=== PATIENT | male | born 1970 | race Two or more races ===

== ENCOUNTER 2017-07-28 13:45 | Emergency (ER) | payer SELFPAY ==
[~2017-07-28] VITALS: Ht 177.8 cm; Wt 77.1 kg
--- NOTE | 2017-07-28 13:45 | NUR ---
pt sukhjinder ra 82 accompanied by lapd on custody and hand cuffed. pt aggressive bahavior, called security at bedside. pt transfered to bed with security and paramedics assisstance and placed on restraint.
--- NOTE | 2017-07-28 15:24 | NUR ---
pt refuses blood draw. very combative. notified.
[2017-07-28] MEDS ORDERED: diphenhydrAMINE 50 MG/1 ML VIAL ONE (15:49)
[2017-07-28] MEDS ORDERED: LORAZEPAM 2 MG/1 ML VIAL ONE (15:50)
[2017-07-28] MEDS ORDERED: OLANZAPINE 10 MG VIAL IM ONE (15:50)
[2017-07-28] MEDS: LORAZEPAM 2 MG/1 ML VIAL IM ONE (16:06)
[2017-07-28] MEDS: diphenhydrAMINE 50 MG/1 ML VIAL IM ONE (16:07)
[2017-07-28] MEDS: OLANZAPINE 10 MG VIAL IM ONE (16:07)
[2017-07-28 17:33] LABS: *BILIRUBIN,URIN NEGATIVE (NEGATIVE); *BLOOD, URINE NEGATIVE (NEGATIVE); *CLARITY,URINE CLEAR (CLEAR); *COLOR,URINE YELLOW (YELLOW); *KETONES,URINE NEGATIVE (NEGATIVE); *PROTEIN,URINE NEGATIVE (NEGATIVE); *UROBILINOGEN,URINE 0.2 E.U./dl (NORMAL); LEUKOCYTE ESTERASE ,URINE NEGATIVE (NEGATIVE); NITRITE, URINE NEGATIVE (NEGATIVE); UGLUCOSE NEGATIVE (NEGATIVE)
--- NOTE | 2017-07-28 17:47 | NUR ---
pt rtying to irina, very combative, had to call ofelia almendarez. pt managed to get out of the room going to hallway where with help of more personel, pt was put back to bed. pt backt o 4 poit again
[2017-07-28 17:50] LABS: *AMPHETAMINE, URINE NEGATIVE (NEGATIVE); *BARBITURATE, URINE NEGATIVE (NEGATIVE); *CANNABINOID, URINE POSITIVE (NEGATIVE); *COCCAINE, URINE NEGATIVE (NEGATIVE); *OPIATE, URINE NEGATIVE (NEGATIVE); *PHENCYCLIDINE SCREEN,URINE NEGATIVE (NEGATIVE)
[2017-07-28 17:52] LABS: WBC,URINE 0-3 /HPF (0-3)
[2017-07-28 17:53] LABS: MUCUS,URINE FEW /LPF (0-FEW)
--- NOTE | 2017-07-28 19:25 | NUR ---
PINKY AT BEDSIDE FOR PSYCHEVAL.
--- NOTE | 2017-07-28 20:05 | NUR ---
Debbie evaluated the patient who did not meet criteria for 5150, patient refused admission to the hospital and requested to leave. A call was placed to [facility] who stated that since the officers left the hospital the patient was no longer considered to be in police custody. Patient discharged to home in stable conditon. Written and verbal after care instructions given. Patient verbalizes understanding of instructions.
== END 2017-07-28 20:07 | disposition home or self-care (01) ==
LOC: ER 13:45
DX: F29 Unspecified psychosis not due to a substance or known physiological condition (principal)
CPT/HCPCS: 80307; 81001; 99284; A4663; J1200; J2060; J2358